=== PATIENT | female | born 1965 | race Caucasian/White ===

== ENCOUNTER → 2021-01-01 | Outpatient (CLI) | payer OTHER ==
[2021-01-01 12:39] LABS: HEMOGLOBIN 12.9 gm/dl (12.3-15.3); RED BLOOD COUNT 4.2 M/UL (4.00-5.10); WHITE BLOOD COUNT 8.3 K/UL (4.5-11.0)
[2021-01-01 13:06] LABS: BUN/CREATININE RATIO 15 (0-10)
[2021-01-02 08:14] LABS: COMPLEMENT C3, SERUM 162 mg/dL (82-167); COMPLEMENT C4, SERUM 28 mg/dL (12-38); RHEUMATOID ARTHRITIS FACTOR <10.0 IU/mL (0.0-13.9)
[2021-01-02 09:14] LABS: HBSAG SCREEN Negative (Negative); HEP B CORE AB, TOT Negative (Negative)
[2021-01-02 12:14] LABS: HCV AB <0.1 (0.0-0.9)
[2021-01-03 09:14] LABS: DSDNA CRITHIDIA LUCILIAE IFA Negative (Negative)
[2021-01-08 18:08] LABS: QUANTIFERON MITOGEN VALUE >10.00 IU/mL (.); QUANTIFERON TB2 AG VALUE 0.01 IU/mL (.); QUANTIFERON-TB GOLD PLUS Negative (Negative)
== END ==
LOC: LAB 11:40
PROVIDERS: Internal Medicine
DX: Z11.59 Encounter for screening for other viral diseases (principal); M25.50 Pain in unspecified joint; M35.00 Sjogren syndrome, unspecified; D89.89 Other specified disorders involving the immune mechanism, not elsewhere classified; R60.9 Edema, unspecified; Z92.89 Personal history of other medical treatment; Z79.899 Other long term (current) drug therapy
CPT/HCPCS: 36415; 80053; 83520; 85025; 85652; 86140; 86160; 86162; 86200; 86255; 86431; 86704; 86803; 87340